=== PATIENT | female | born 1990 | race African-American/Black ===

== ENCOUNTER 2017-09-20 15:48 | Emergency (ER) | payer SELFPAY ==
[~2017-09-20] VITALS: Ht 180.3 cm; Wt 113.4 kg
[2017-09-20 16:10] VITALS: BP 105/48
[2017-09-20] MEDS ORDERED: LIDOCAINE /MPF 1% VIAL 5 ML VIAL ONE (17:06)
[2017-09-20] MEDS ORDERED: LIDOCAINE HCL/PF 1% 30 ML VIAL IM ONE (17:30)
== END 2017-09-20 18:00 | disposition home or self-care (01) ==
LOC: ER 15:53
DX: L03.012 Cellulitis of left finger (principal)
CPT/HCPCS: 10060; 99283; A4606; A6402; J3490 ×2; Z7610